=== PATIENT | female | born 1935 | race Caucasian/White ===

== ENCOUNTER 2018-09-17 23:27 | Emergency (ER) | payer MEDICARE, OTHER ==
[~2018-09-17] VITALS: Ht 149.9 cm; Wt 63.6 kg
[~2018-09-17 23:27] MED LIST: ASPI-676 PO; BENA40TA56 PO; CALC500T99 PO; ESOM40CA PO; FLUT1DIS21; FURO20TA3 PO; ISOS30TA20 PO; LOSA1TAB29 PO; MECL12.574 PO; MELO7.5T38 PO; METF-849 PO; METO-53 PO; NIFE30TA29 PO; PIOG30TA19 PO; ZOLP5TAB PO
[2018-09-17 23:37] VITALS: Ht 149.9 cm; Wt 63.6 kg
--- NOTE | 2018-09-18 02:48 | ERD ---
ER Documentation Chief Complaint Chief Complaint FERNANDA7,from home,HTN w/ SBP 200's,mild DAVIDSON,denies numbness,SOB,CP HPI This is a 83-year-old female who presents for hypertension. Patient is on metoprolol, losartan, and hydrochlorothiazide for hypertension. She endorses a mild headache, but otherwise has had not confusion, no chest pain, no shortness of breath, and has otherwise been doing well. She states that the blood pressur e has been above 200 for the last 4 days. ROS All systems reviewed and are negative except as per history of present illness. Medications Home Meds Reported Medications Benazepril Hcl* (Benazepril Hcl*) 40 Mg Tablet, PO Q12H 04/09/12 Metoprolol (Lopressor) 50 Mg Tablet, PO Q12H 04/09/12 Nifedipine* (Afeditab CR*) 30 Mg Tablet.sa, PO DAILY 04/09/12 Isosorbide Dinitrate* (Isosorbide Dinitrate*) 30 Mg Tablet, PO DAILY 04/09/12 Calcium Carbonate ([id number]) 1 Tab Tablet, PO BID 04/09/12 Fluticasone/Salmeterol (Advair 500-50 Diskus) 1 Disk W/Dev Disk.w.dev 04/09/12 Aspirin (Kimberlyn Child) 81 Mg Chew, PO DAILY 04/09/12 Zolpidem Tartrate* (Ambien*) 5 Mg Tablet, PO HS 04/09/12 Esomeprazole Mag Trihydrate (Nexium) 40 Mg Capsule., PO MIGDALIA 04/09/12 Furosemide* (Furosemide*) 20 Mg Tablet, PO DAILY 04/09/12 Metformin* (Glucophage*) 500 Mg Tab, PO BID 04/09/12 Losartan/Hydrochlorothiazide (Hyzaar 100-25 Tablet) 1 Tab Tablet, PO DAILY 04/09/12 Pioglitazone Hcl* (Actos*) 30 Mg Tablet, PO DAILY 04/09/12 Meloxicam* (Meloxicam*) 7.5 Mg Tablet, PO DAILY 04/09/12 Meclizine Hcl* (Antivert*) 12.5 Mg Tab, PO BID PRN 04/09/12 Allergies Allergies: Coded Allergies: No Known Allergy (Unverified , 04/09/12) PMhx/Soc History of Surgery: Yes (CSECTION, CHOLECYSTECTOMY) Anesthesia Reaction: No Hx Neurological Disorder: Yes (VERTIGO) Hx Respiratory Disorders: No Hx Cardiac Disorders: Yes (CHF; HTN) Hx Psychiatric Problems: No Hx Miscellaneous Medical Probl: Yes (INSOMNIA) Hx Alcohol Use: No Hx Substance Use: No Hx Tobacco Use: No Smoking Status: Never smoker Physical Exam Vitals Vital Signs Date Temp Pulse Resp B/P (MAP) Pulse Ox O2 O2 Flow FiO2 Time Delivery Rate 09/18/18 64 22 175/57 96 Room Air 01:22 (96) 09/17/18 97.5 79 17 219/78 98 23:37 (125) Physical Exam Const: No acute distress, well-appearing nontoxic, no distress Head: Atraumatic Eyes: Normal Conjunctiva ENT: Normal External Ears, Nose and Mouth. Neck: Full range of motion. No meningismus. Resp: Clear to auscultation bilaterally Cardio: Regular rate and rhythm, no murmurs Abd: Soft, non tender, non distended. Normal bowel sounds Skin: No petechiae or rashes Back: No midline or flank tenderness Ext: No cyanosis, or edema Neur: Awake and alert, cranial nerves II through XII intact, strength 5 out of 5 bilaterally, no cerebellar ataxia Psych: Normal Mood and Affect Result Diagram: 09/17/18 2350 09/17/18 2349 Results 24 hrs Laboratory Tests Test 09/17/18 23:49 09/17/18 23:50 Prothrombin Time 12.3 Sec Prothrombin Time Ratio 1.0 INR International Normalized Ratio 0.90 Activated Partial Thromboplast Time 27.9 Sec Sodium Level 139 mmol/L Potassium Level 4.0 mmol/L Chloride Level 102 mmol/L Carbon Dioxide Level 25 mmol/L Anion Gap 12 Blood Urea Nitrogen 28 mg/dl Creatinine 0.89 mg/dl Est Glomerular Filtrat Rate mL/min mL/min Glucose Level 134 mg/dl Calcium Level 9.8 mg/dl Troponin I < 0.012 ng/ml White Blood Count 8.7 10^3/ul Red Blood Count 4.31 10^6/ul Hemoglobin 12.3 g/dl Hematocrit 37.9 % Mean Corpuscular Volume 87.9 fl Mean Corpuscular Hemoglobin 28.5 pg Mean Corpuscular Hemoglobin Concent 32.5 g/dl Red Cell Distribution Width 13.0 % Platelet Count 283 10^3/UL Mean Platelet Volume 10.3 fl Immature Granulocytes % 0.200 % Neutrophils % 58.1 % Lymphocytes % 28.2 % Monocytes % 7.8 % Eosinophils % 4.9 % Basophils % 0.8 % Nucleated Red Blood Cells % 0.0 /100WBC Immature Granulocytes # 0.020 10^3/ul Neutrophils # 5.1 10^3/ul Lymphocytes # 2.5 10^3/ul Monocytes # 0.7 10^3/ul Eosinophils # 0.4 10^3/ul Basophils # 0.1 10^3/ul Nucleated Red Blood Cells # 0.0 10^3/ul Procedures/MDM Is an 83-year-old female who presents for evaluation of hypertension. Patient had no chest pain or shortness of breath, no evidence of hypertensive emergency, her CT brain was negative, and her labs were overall unremarkable. I reviewed her medications, currently she is on losartan at 50 mg daily, I recommended that she take 50 mg, twice a day, at discharge she was in no distress. EKG: Rate/Rhythm: Normal Sinus Rhythm QRS, ST, T-waves: No changes consistent w/ acute ischemia Impression: No evidence of ischemia or arrhythmia Departure Diagnosis: Primary Impression: Hypertension Hypertension type: unspecified Qualified Codes: I10 - Essential (primary) hypertension Condition: Stable Patient Instructions: High Blood Pressure (Hypertension) Additional Instructions: Evaluated today for high blood pressure. You may increase your losartan to twice a day, please make sure you follow-up with your primary care doctor within the next 72 hours. If you are unable to see your primary care doctor, return to the ED CHARLOTTE LEWIS MD Sep 18, 2018 02:48
[2018-09-18 02:57] VITALS: BP 182/59; PULSE 73; RESP 26
[2018-09-18] MEDS ORDERED: LINA5TAB PO (04:27)
[2018-09-18] MEDS ORDERED: GLIM4TAB PO (04:27)
[2018-09-18] MEDS ORDERED: HYDR25TA6 PO (04:27)
[2018-09-18] MEDS ORDERED: EMPA25TA PO (04:27)
[2018-09-18] MEDS ORDERED: LOSA50TA14 PO (04:27)
== END 2018-09-18 02:58 | disposition home or self-care (01) ==
LOC: E/R 23:27
DX: I10 Essential (primary) hypertension (principal); I50.9 Heart failure, unspecified; R51 Headache; Z79.82 Long term (current) use of aspirin; Z79.84 Long term (current) use of oral hypoglycemic drugs
CPT/HCPCS: 36415; 70450; 80048; 84484; 85025; 85610; 85730; 93005